=== PATIENT | female | born 1980 ===

== ENCOUNTER 2022-01-04 13:41 | Outpatient (REF) | payer OTHER, SELFPAY ==
--- NOTE | ~2022-01-04 | MM_ITS ---
EXAMINATION: MM SCREENING DIGITAL BREAST TOMOSYNTHESIS, BILATERAL CLINICAL INFORMATION: Screening. Asymptomatic. Prior history reduction mammoplasty. Prior [id number] mammography currently unavailable. The lifetime risk of breast cancer based on the Tyrer-Cuzick Model is 10%. COMPARISON: None. TECHNIQUE: Digital breast tomosynthesis is performed in both the craniocaudal and mediolateral oblique views along with computer-aided detection (CAD). Synthesized 2D images are generated from the tomosynthesis. Additional right MLO view is provided. FINDINGS: There are scattered areas of fibroglandular density (ACR BI-RADS breast composition Category b). Breast tissue composition borders on heterogeneously dense. There is no significant mass or architectural abnormality or abnormal calcifications. Scattered bilateral round, rim, predominantly dermal calcifications are present along with some minor scarring consistent with the prior reduction mammoplasty. Radiology department staff will attempt to retrieve prior [id number]-fcadh mammography to allow for comparison in an addendum report. MM/MM tomosynthesis screening BI IMPRESSION: -No mammographic evidence of malignancy. -Minor scarring and benign calcifications consistent with prior reduction mammoplasty. ASSESSMENT: BI-RADS 2: Benign RECOMMENDATION: Routine annual mammography screening. This patient's information was entered into a reminder system with a target due date for their next mammogram.
== END 2022-01-04 13:42 | disposition home or self-care (01) ==
LOC: HO.MAMMO 13:41
PROVIDERS: Visit Provider Internal Medicine
DX: Z12.31 Encounter for screening mammogram for malignant neoplasm of breast (principal)
CPT/HCPCS: 77063; 77067

== ENCOUNTER 2022-08-16 09:37 | Emergency (ER) | payer OTHER, SELFPAY ==
--- NOTE | ~2022-08-16 | XR_ITS ---
EXAMINATION: XR LUMBOSACRAL SPINE CLINICAL INFORMATION: Low back pain COMPARISON: None available. TECHNIQUE: Three views of the lumbosacral spine. FINDINGS: There is mild curvature of the lower lumbar spine to the left. Bone alignment is otherwise normal. No fracture or dislocation. Normal disc spaces. IUD in the pelvis. Postsurgical changes to the stomach. XR/XR lumbar spine 2-3V IMPRESSION: Mild curvature of the lower lumbar spine to the left otherwise unremarkable exam.
--- NOTE | ~2022-08-16 | XR_ITS ---
EXAMINATION: XR HIP, LEFT CLINICAL INFORMATION: Pain. COMPARISON: None available. TECHNIQUE: Two views of the left hip and 1 view of the pelvis. FINDINGS: Bone alignment is normal. No fracture or dislocation. There is CAM deformity at both hip joints, right greater than left. This can cause femoral acetabular impingement. Joint spaces are otherwise normal. There is an IUD in the pelvis. Soft tissues are otherwise normal. XR/XR hip LT w PEL1V IMPRESSION: No fracture or dislocation. CAM deformity of both hip joints, right greater than left.
[2022-08-16 09:39] VITALS: BP 120/88; PULSE 91; RESP 18; TEMP 36.6; O2SAT 97; BMI 31.4
--- NOTE | 2022-08-16 09:52 | ED_ITS ---
HPI - Back Pain/Injury General Chief Complaint: Back Pain/Injury Stated Complaint: Low Back Pain Radiating Down Left Side Time Seen by Provider: 08/16/22 09:52 Source: patient, RN notes reviewed and old records reviewed Mode of arrival: ambulatory History of Present Illness HPI Narrative: 41-year-old female past medical history of degenerative disc disease, presenting to the ED complaining of left low back/hip pain radiating down LLE x3 weeks. Admits to associated numbness/tingling & pain worsened with position changes, standing, and sitting. Denies direct injury/trauma or fall, weakness, urinary incontinence/retention, fever. Patient reports prior chronic right hip pain, had MRI a few years ago showing osteophytes. Patient requesting MRI today, states cannot get in with PCP for 3-4 months. Denies dysuria/hematuria, flank p berenice EPPS elicited complaint: back pain Related Data Allergies Allergy/AdvReac Type Severity Reaction Status Date / Time No Known Allergies Allergy Verified 08/16/22 09:48 Review of Systems Review of Systems: Constitutional: No Fever, No Chills ENT/Mouth: No Ear Pain, No Nasal Congestion, No sore throat, No Rhinorrhea, No Swallowing Difficulty Cardiovascular: No Chest Pain, No SOB Respiratory: No Cough, No Sputum Gastrointestinal: No Nausea, No Vomiting, No Diarrhea, No Constipation, No Abdominal pain Genitourinary: No Dysuria, No Urinary Frequency, No Hematuria, No Urinary Incontinence/retention, No Flank Pain Musculoskeletal: + joint pain, + Myalgias, No Joint Swelling Skin: No Skin Lesions, No rash Neuro: No Weakness, + Numbness, + Paresthesias Yes all other systems are reviewed and are negative Constitutional: Constitutional: Reports as per [facility] Past Medical History Attestation statement: The following information was validated with the patient. Source: old records reviewed Social History Social History Advance Directives: No Physical Exam Vital Signs: Vital Signs: Last Vital Signs Temp 97.8 F 08/16/22 09:39 Pulse 95 08/16/22 10:02 Resp 20 08/16/22 10:02 BP 125/73 08/16/22 10:02 Pulse Ox 97 08/16/22 10:02 O2 Del Method Room Air 08/16/22 10:02 BMI result Body Mass Index 31.4 Const: General: cooperative, healthy appearing and no acute distress Orientation/consciousness: patient oriented x3 Limitations: no limitations HEENT: Head: Yes normal to inspection and Yes atraumatic Ears: hearing grossly normal bilaterally General nose exam: Normal external nose present Face and sinus: Yes normal facial exam Eyes: General: appearance normal, both eyes and all related structures EOM: EOMs intact bilaterally Neck: Neck: Yes normal visual inspection and Yes no meningeal signs Resp: Effort & Inspection: normal respiratory effort and no respiratory distress Cardio: Rate: regular rate Heart sounds: S1 normal heart sound present and S2 normal heart sound present : General: Yes no CVA tenderness Back/Spine/Pelvis: Other: No midline cervical/thoracic/lumbar spinous tenderness/step-off or deformity. + left lower lumbar/buttock tenderness to palpation reproducing subjective complaint. No erythema/ecchymosis or crepitus Back: no CVA tenderness Skin: Rashes: no rashes Wounds: no wounds Neuro: Other: Strength intact throughout. No saddle anesthesia. Sensation intact to light touch. Neurovascular intact distally General: patient oriented x3, gait normal, tone normal, moves all extremities, no meningeal signs and no focal motor deficits Gait exam (Neuro): Normal gait present Motor exam (neuro): 5/5 motor strength present throughout Extrem: General: Yes normal to inspection Course Course Course Narrative: 1138--XR lumbar spine 2-3V IMPRESSION: Mild curvature of the lower lumbar spine to the left otherwise unremarkable exam. XR hip LT w PEL1V IMPRESSION: No fracture or dislocation. CAM deformity of both hip joints, right greater than left. Results discussed with patient and family, recommend close orthopedic follow-up, discussed worrisome signs and symptoms and strict return precautions, and when to return to the emergency department. They verbalized understanding and feel safe for discharge at this time. Medications Administered Discontinued Medications Generic Name Dose Route Start Last Admin Trade Name Freq PRN Reason Stop Dose Admin Ketorolac Tromethamine 30 mg 08/16/22 10:09 08/16/22 10:28 Ketorolac Tromethamine 30 Mg/Ml Vial IM 08/16/22 10:10 30 mg ONCE ONE Administration Medical Decision Making Medical Decision Making [facility] Narrative: 41-year-old female past medical history of degenerative disc disease, presenting to the ED complaining of left low back/hip pain radiating down LLE x3 weeks. On exam vital signs stable, NAD, nontoxic appearing, midline spinous tenderness throughout or red flag symptoms, ambulating with steady gait. Left lower lumbar/buttock MSK tenderness reproducible exam as above. No saddle anesthesia. Concern for sciatica vs osteoarthritis vs MSK pain/strain vs ? Herniated disc. Lower suspicion for cauda equina, cord compression, epidural abscess, renal stone/pyelo. Discussed with patient MRI not obtainable from the emergency department, we need to follow-up with PCP or orthopedics Plan: X-rays, IM Toradol Please refer to course for remaining clinical decision making, interpretation of labs/imaging results, and discussions with consultants and/or family members. Differential Diagnosis Differential Diagnoses: The differential diagnosis associated with the presentation includes As above External Record Review External record reviewed: Inpatient record, Office record, Outpatient record, Prior outpatient labs, Prior outpatient radiology, Primary care record and Outside ED record Tests considered The following testing was considered but not selected: As above Prescription Management I considered prescription management with: Pain Medication Discharge Plan Discharge Clinical Impression: Sciatica Patient Disposition: Home, Self-Care Instructions: Sciatica (ED) Additional Instructions: Your pain is likely musculoskeletal Flexeril is a muscle relaxer, take at night as it makes you drowsy, do not dr kalia, drink alcohol, or operate machinery while taking it Naproxen as an anti-inflammatory / pain medication, take with food Lidoderm patches are numbing patches, apply to painful area In addition take Tylenol at home If symptoms persist or worsen, pain becomes unbearable, you developed urinary retention or incontinence, or weakness return to the ED Referrals: [facility] [Provider Group] [facility] [Outside] [facility] [Outside]
--- NOTE | 2022-08-16 09:54 | PC.NURSE ---
Patient complaining of pain in lower back/left hip area. Patient denies any trauma to the area recently. Patient states that she feels most of her pain in the left hip area and it goes down into her leg. Patient noted to be limping when walking. Patient is otherwise well appearing.
[2022-08-16 10:02] VITALS: BP 125/73; PULSE 95; RESP 20; O2SAT 97
[2022-08-16] MEDS: Ketorolac Tromethamine 30 MG/ML VIAL IM (10:28)
== END 2022-08-16 12:09 | disposition home or self-care (01) ==
PROVIDERS: Emergency Provider Student in an Organized Health Care Education/Training Program; PCP Nurse Practitioner Family
DX: M54.42 Lumbago with sciatica, left side (principal)
CPT/HCPCS: 72100; 73502; 96372; 99284; J1885

== ENCOUNTER 2022-11-18 13:58 | Outpatient (AMB) | payer OTHER, SELFPAY ==
[2022-11-18 14:00] VITALS: BP 128/70; PULSE 78; O2SAT 97; BMI 30.8
--- NOTE | 2022-11-18 14:00 | MHC.OFFVIS ---
Intake Vital Signs 11/18/22 14:00 Height 5 ft 5 in Weight 185 lb 3.013 oz BMI 30.8 BP 128/70 Blood Pressure Location Lt brachial Position Sitting Pulse 78 Pulse Source Pulse Oximeter Pulse Oximetry (%) 97 Oxygen Delivery Method Room Air Intake Visit Reasons: pulmonary nodule Grain Elevator Superintendent Required: No In Flight Technician: In Flight Technician offered & declined Accompanied by: Self / Same As Patient Allergies No Known Allergies Allergy (Verified 11/18/22 14:06) Medication List - Last Reconciled 11/18/22 by Kierra Clements LPN acetaminophen (Tylenol Extra Strength) 500 mg PO Q6H PRN buprenorphine-naloxone 2-0.5 mg (Suboxone) 2 film buccal DAILY cyanocobalamin (vitamin B-12) 1,000 mcg PO DAILY cyclobenzaprine 5 mg PO Q8H PRN 5 days hydroxyzine HCl 10 mg PO .Q24 hours PRN ketorolac 10 mg PO TID PRN 5 days lidocaine 5% (Lidoderm) 1 patch topical DAILY PRN MDD remove after 12 hours multivitamin,tx-minerals 1 tab PO DAILY pantoprazole 40 mg PO DAILY PRN sertraline 200 mg PO DAILY terbinafine HCl 250 mg PO DAILY trazodone 150 mg PO BEDTIME PRN HPI pulmonary nodule HPI Details Monika is a pleasant 41 year old female, never smoker, with underlying chronic cough and pulmonary nodule. [facility] She reports having frequent scans, ranging from 6 months to 1 year, following nodule over the past few years. 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 The last chest CT from September 2022, revealed a 9 mm nodule of the SEBASTI[place]N, that was previously 11 mm. She reports having an abnormal PFT while in the [place] but has not had a recent PFT. She reports chronic cough that will last a few weeks and occurs 3-4 times per year. She denies any known triggers. She denies any allergic symptoms or allergy testing. She denies any cough at this time but does report dyspnea with stairs and hills. She denies any family history of lung conditions. She also reports frequent night time awakenings, loud snoring and daytime fatigue. She is scheduled for an in lab sleep study at [facility] in February. [facility] Social History (Updated 11/18/22 @ 14:10 by Kierra Clements LPN) Alcohol intake: current Alcohol intake frequency: a few times a week Patient Tobacco Use Status: Never used Tobacco Review of Systems Const Denies chills, Denies excessive sweating, Denies fever(s) and Denies night sweats Eyes Denies dry eyes, Denies irritation and Denies itchy eyes ENT Reports Normal hearing present, Denies nasal congestion, Denies nasal discharge, Denies post nasal drip and Denies sore throat Card Denies chest pain, Denies chest pain at rest, Denies chest pain with activity, Denies leg edema, Denies orthopnea and Denies paroxysmal nocturnal dyspnea Resp Denies chest congestion, Denies cough, Denies excessive phlegm production, Denies pain on inspiration, Denies pain with cough, Denies stridor and Denies wheezing Musc Denies myalgias Neuro Reports Normal hearing present Endo Denies excessive sweating Cj/Lymph Denies lymphadenopathy Aller/Immun Denies itchy eyes, Denies seasonal rhinorrhea and Denies wheezing Physical Exam Vital Signs: Last Vital Signs Pulse 78 11/18/22 14:00 BP 128/70 11/18/22 14:00 Pulse Ox 97 11/18/22 14:00 Oxygen Delivery Method Room Air 11/18/22 14:00 BMI result Body Mass Index 30.8 Const General: cooperative, healthy appearing, comfortable, no acute distress, well developed and alert Orientation/consciousness: patient oriented x3 Limitations: no limitations HEENT Head: Yes normal to inspection, Yes normocephalic and Yes atraumatic Ears: hearing grossly normal bilaterally and external ears normal Eyes General: appearance normal, both eyes and all related structures Eyelids: Yes eyelids normal Sclerae: sclerae normal EOM: EOMs intact bilaterally Neck Neck: Yes normal visual inspection and Yes no lymphadenopathy Lymphatic: no lymphadenopathy noted Chest Chest palpation & inspection: normal inspection of the chest Resp Effort & Inspection: normal respiratory effort, able to speak in complete sentences, no audible wheezes, no cough, no stridor, not tachypneic, no tripod positioning and no use of accessory muscles Auscultation: clear to auscultation bilaterally Cardio Jugular venous distension: no JVD Rate: regular rate Rhythm: regular rhythm Skin Other: warm, dry General skin exam: no rashes or lesions noted Neuro General: patient oriented x3 Cranial nerves: Yes Normal hearing present Cognition (Neuro): normal cognition Gait exam (Neuro): Normal gait present Extrem General: Yes normal to inspection, Yes capillary refill normal, Yes no clubbing, cyanosis or edema and Yes no pedal edema Psych Appearance: grossly normal and well kempt Speech and movement: Normal speech and movement present and Clear speech present Affect: normal affect Attitude: cooperative Thought process: Normal thought process present Thought content: Normal thought content present Insight: Good insight present (Psych) Judgement: Good judgement present (Psych) Results Reviewed Results Reviewed: Assessment & Plan Assessment & Plan (1) Dyspnea on exertion: Code(s): R06.09 - Other forms of dyspnea (2) Pulmonary nodule: Code(s): R91.1 - Solitary pulmonary nodule (3) Chronic cough: Code(s): R05.3 - Chronic cough Plan Monika presents to discuss 9 mm pulmonary nodule of SEBASTI[place]N that has been followed for the past few years. Reviewed report with patient and discussed there is a low likelihood the nodule is malignant given it has decreased in size over the past 6 months from 11mm to 9 mm. Will rescan patient in 6 months to evaluate. Will also send for PFT to assess for any restrictive or obstructive defects. Discussed empirically starting inhaler but she would like to hold off until results of PFT. All questions were answered and patient is in agreement of plan. Will follow up to review results. Orders: Orders CT chest wo IV con 03/03/23 R91.1 - Solitary pulmonary nodule PFT pulmonary function test Today J42 - Unspecified chronic bronchitis, R06.09 - Other forms of dyspnea Coding Level of Care Code New Pt Level 3 (24273) Diagnoses Dyspnea on exertion R06.09 Pulmonary nodule R91.1 Chronic cough R05.3
== END 2022-11-18 14:38 | disposition home or self-care (01) ==
PROVIDERS: PCP Nurse Practitioner Family; Referring Provider Nurse Practitioner Family; Visit Provider Nurse Practitioner Family
DX: R06.09 Other forms of dyspnea (principal); R91.1 Solitary pulmonary nodule; R05.3 Chronic cough
CPT/HCPCS: 99203

== ENCOUNTER → 2022-11-18 13:58 | Outpatient (BNVA) | payer OTHER, SELFPAY | PROVIDERS: PCP Nurse Practitioner Family; Visit Provider Nurse Practitioner Family | DX: R05.3 Chronic cough (principal); R06.09 Other forms of dyspnea; J42 Unspecified chronic bronchitis; R91.1 Solitary pulmonary nodule | CPT/HCPCS: 99202 ==

== ENCOUNTER 2022-12-15 09:03 | Outpatient (REF) | payer OTHER, SELFPAY ==
--- NOTE | 2022-12-15 09:46 | PFT_ITS ---
INDICATION: Dyspnea. SPIROMETRY: FEV to FVC 90% with an FEV1 of 2.34 L, which is 76% predicted. FVC of 2.61 L, which is 70% predicted. No significant response to bronchodilators noted. Maximum voluntary ventilation 60% predicted. LUNG VOLUMES: Total lung capacity 67% predicted with an expiratory reserve volume of 33% predicted. DIFFUSION CAPACITY: DLCO 76% predicted. COMPARISONS: None. INTERPRETATION: No obstructive ventilatory defects. No significant response to bronchodilators noted. There is a mild to moderate decrease in the maximum voluntary ventilation, which could be secondary to deconditioning. Lung volumes do demonstrate a restrictive ventilatory defect consistent with moderate restrictive lung disease. In part due to an elevated BMI, underlying parenchymal lung conditions cannot be ruled out. The patient also has a mild diffusion impairment. Clinical correlation warranted. MD NIMISHA Pickett/MODL / [id number]
== END 2022-12-15 09:04 | disposition home or self-care (01) ==
LOC: HO.RESP 09:03
PROVIDERS: PCP Nurse Practitioner Family; Visit Provider Nurse Practitioner Family
DX: R06.09 Other forms of dyspnea (principal); J42 Unspecified chronic bronchitis
CPT/HCPCS: 94010; 94727; 94729

== ENCOUNTER → 2022-12-15 09:46 | Outpatient (BNV) | payer OTHER, SELFPAY | PROVIDERS: PCP Nurse Practitioner Family; Visit Provider Hospitalist | DX: R06.09 Other forms of dyspnea (principal); R05.9 Cough, unspecified; R19.8 Other specified symptoms and signs involving the digestive system and abdomen | CPT/HCPCS: 94060; 94727; 94729 ==

== ENCOUNTER 2022-12-21 | Outpatient (REF) | payer OTHER, SELFPAY | END 2022-12-21 00:01 | disposition home or self-care (01) | LOC: CF | PROVIDERS: Visit Provider Nurse Practitioner Family | DX: R06.09 Other forms of dyspnea (principal); R91.1 Solitary pulmonary nodule; R05.3 Chronic cough; Z79.899 Other long term (current) drug therapy | CPT/HCPCS: 99212 ==

== ENCOUNTER 2022-12-21 13:24 | Outpatient (AMB) | payer OTHER, SELFPAY ==
[2022-12-21 13:35] VITALS: BP 128/70; PULSE 80; O2SAT 98; BMI 31.1
--- NOTE | 2022-12-21 13:35 | A.OFFVIS_ITS ---
Intake Vital Signs 3 12/21/22 13:35 Height 5 ft 5 in Weight 187 lb BMI 31.1 BP 128/70 Blood Pressure Location Rt brachial Position Sitting Pulse 80 Pulse Source Pulse Oximeter Pulse Oximetry (%) 98 Oxygen Delivery Method Room Air Intake Visit Reasons: pulmonary nodule Instructor Watch Assembly Required: No Rivet Maker: Rivet Maker offered & declined Accompanied by: Self / Same As Patient Allergies No Known Allergies Allergy (Verified 12/21/22 13:40) Medication List - Last Reconciled 12/21/22 by Kierra Clements LPN acetaminophen (Tylenol Extra Strength) 500 mg PO Q6H PRN buprenorphine-naloxone 2-0.5 mg (Suboxone) 2 film buccal DAILY cyanocobalamin (vitamin B-12) 1,000 mcg PO DAILY cyclobenzaprine 5 mg PO Q8H PRN 5 days hydroxyzine HCl 10 mg PO .Q24 hours PRN ketorolac 10 mg PO TID PRN 5 days lidocaine 5% (Lidoderm) 1 patch topical DAILY PRN MDD remove after 12 hours multivitamin,tx-minerals 1 tab PO DAILY pantoprazole 40 mg PO DAILY PRN sertraline 200 mg PO DAILY terbinafine HCl 250 mg PO DAILY trazodone 150 mg PO BEDTIME PRN HPI pulmonary nodule 2 HPI0 Details Monika is a pleasant 41 year old female, never smoker, with underlying chronic cough and pulmonary nodule. [facility] The last chest CT from September 2022, revealed a 9 mm nodule of the [place], that was previously 11 mm. She has a repeat scan scheduled for March. She continues to report intermittent dyspnea. Today she presents to review PFT. [facility] Social History (Updated 12/21/22 @ 13:42 by Kierra Clements LPN) Alcohol intake: current Alcohol intake frequency: a few times a week Patient Tobacco Use Status: Never used Tobacco Review of Systems Const Denies chills, Denies excessive sweating, Denies fever(s) and Denies night sweats Eyes Denies dry eyes, Denies irritation and Denies itchy eyes ENT Reports Normal hearing present Card Denies chest pain, Denies chest pain at rest, Denies chest pain with activity, Denies leg edema and Denies orthopnea Resp Denies chest congestion, Denies cough, Denies excessive phlegm production, Denies pain on inspiration, Denies pain with cough, Denies stridor and Denies wheezing Musc Denies myalgias Neuro Reports Normal hearing present Endo Denies excessive sweating Cj/Lymph Denies lymphadenopathy Aller/Immun Denies itchy eyes, Denies seasonal rhinorrhea and Denies wheezing Physical Exam Vital Signs: Last Vital Signs Pulse 80 12/21/22 13:35 BP 128/70 12/21/22 13:35 Pulse Ox 98 12/21/22 13:35 Oxygen Delivery Method Room Air 12/21/22 13:35 BMI result Body Mass Index 31.1 Const General: cooperative, healthy appearing, comfortable, no acute distress, well developed and alert Orientation/consciousness: patient oriented x3 Limitations: no limitations HEENT Head: Yes normal to inspection, Yes normocephalic and Yes atraumatic Ears: hearing grossly normal bilaterally and external ears normal Eyes General: appearance normal, both eyes and all related structures Eyelids: Yes eyelids normal Sclerae: sclerae normal EOM: EOMs intact bilaterally Neck Neck: Yes normal visual inspection and Yes no lymphadenopathy Lymphatic: no lymphadenopathy noted Chest Chest palpation & inspection: normal inspection of the chest Resp Effort & Inspection: normal respiratory effort, able to speak in complete sentences, no audible wheezes, no cough, no stridor, not tachypneic, no tripod positioning and no use of accessory muscles Auscultation: clear to auscultation bilaterally Cardio Jugular venous distension: no JVD Rate: regular rate Rhythm: regular rhythm Skin Other: warm, dry General skin exam: no rashes or lesions noted Neuro General: patient oriented x3 Cranial nerves: Yes Normal hearing present Cognition (Neuro): normal cognition Gait exam (Neuro): Normal gait present Extrem General: Yes normal to inspection, Yes capillary refill normal, Yes no clubbing, cyanosis or edema and Yes no pedal edema Psych Appearance: grossly normal and well kempt Speech and movement: Normal speech and movement present and Clear speech present Affect: normal affect Attitude: cooperative Thought process: Normal thought process present Thought content: Normal thought content present Insight: Good insight present (Psych) Judgement: Good judgement present (Psych) Results Reviewed Results Reviewed: Assessment & Plan Assessment & Plan (1) Dyspnea on exertion: Code(s): R06.09 - Other forms of dyspnea (2) Pulmonary nodule: Code(s): R91.1 - Solitary pulmonary nodule (3) Chronic cough: Code(s): R05.3 - Chronic cough Plan Reviewed PFT which did not reveal any obstructive ventilatory defects. There was some bronchodilator response in the small to medium airways. There was a decrease in MVV likely secondary to deconditioning and lung volumes were decreased suggestive of restrictive lung disease. CT chest from 09/23 did reveal stable parenchymal scarring. At this time, she would like to trial albuterol PRN as she reported symptomatic relief during the PFT. If she finds that she is using albuterol with good effect, then will call for ICS/LABA. All questions were answered and patient is in agreement of plan. Will follow up after chest CT or sooner if needed. Medications: New 2 albuterol sulfate 90 mcg/actuation 2 puffs inhalation Q4-6H PRN 1 ea 3RF shortness of breath or wheezing Coding Level of Care Code Est Pt Level 4 (60709) Diagnoses Dyspnea on exertion R06.09 Pulmonary nodule R91.1 Chronic cough R05.3
== END 2022-12-21 14:37 | disposition home or self-care (01) ==
LOC: HO.HPSW 13:24
PROVIDERS: PCP Nurse Practitioner Family; Visit Provider Nurse Practitioner Family
DX: R06.09 Other forms of dyspnea (principal); R91.1 Solitary pulmonary nodule; R05.3 Chronic cough
CPT/HCPCS: 99212; 99214

== ENCOUNTER → 2023-02-17 12:30 | Outpatient (BNV) | payer OTHER, SELFPAY | PROVIDERS: PCP Nurse Practitioner Family; Visit Provider Radiology Diagnostic Radiology | DX: R92.312 Mammographic fatty tissue density, left breast (principal); R92.323 Mammographic fibroglandular density, bilateral breasts | CPT/HCPCS: 76642; 77062; 77066 ==

== ENCOUNTER 2023-02-17 12:34 | Outpatient (REF) | payer OTHER, SELFPAY ==
--- NOTE | ~2023-02-17 | US_ITS ---
EXAMINATION: MM DIAGNOSTIC DIGITAL BREAST TOMOSYNTHESIS, BILATERAL US BREAST LIMITED, BILATERAL MAMMOGRAPHY: CLINICAL INFORMATION: Bilateral breast pain, superior on the left, and lateral on the right COMPARISON: Mammography: 01/04/2022. TECHNIQUE: Digital breast tomosynthesis is performed in both the craniocaudal and mediolateral oblique views along with computer-aided detection (CAD). Synthesized 2D images are generated from the tomosynthesis. In addition to standard views, spot magnification 3-D views were performed in the right MLO projection x2. FINDINGS: The breasts are heterogeneously dense, which may obscure small masses (ACR BI-RADS breast composition Category c). There are no suspicious masses, suspicious grouped calcifications, or areas of architectural distortion in either breast. The parenchymal pattern is stable from prior exams. No mammographic correlation to the regions of breast pain is evident. ULTRASOUND: CLINICAL INFORMATION: Bilateral breast pain, superior on the right, and lateral on the left. COMPARISON: None TECHNIQUE: Targeted sonographic evaluation was performed using a high frequency linear transducer. Selected archived documentation. FINDINGS: RIGHT BREAST: There is a mixture of fatty and fibroglandular tissue. No suspicious mass is seen. There is no pathologic acoustic shadowing. There is no axillary adenopathy. LEFT BREAST: There is a mixture of fatty and fibroglandular tissue. No suspicious mass is seen. There is no pathologic acoustic shadowing. There is no axillary adenopathy. US/US breast BI limited mamm only IMPRESSION: There are no findings suspicious for malignancy in either breast. There is no mammographic or sonographic correlate to the regions of breast pain in both breasts. Recommend clinical management. Otherwise, recommend returning to annual screening mammography. OVERALL ASSESSMENT: Mammography: BI-RADS 1 - Negative Ultrasound: BI-RADS 1 - Negative RECOMMENDATION: 1 year F/U This patient's information was entered into a reminder system with a target due date for their next mammogram.
== END 2023-02-17 12:35 | disposition home or self-care (01) ==
LOC: HO.MAMMO 12:34
PROVIDERS: PCP Nurse Practitioner Family; Visit Provider Nurse Practitioner Family
DX: N64.4 Mastodynia (principal)
CPT/HCPCS: 76642; 77062; 77066

== ENCOUNTER 2023-03-24 14:11 | Outpatient (REF) | payer OTHER, SELFPAY | END 2023-03-24 14:12 | disposition home or self-care (01) | LOC: HO.CT 14:11 | PROVIDERS: PCP Nurse Practitioner Family; Visit Provider Nurse Practitioner Family | DX: R91.1 Solitary pulmonary nodule (principal) | CPT/HCPCS: 71250 ==

== ENCOUNTER → 2023-04-11 15:16 | Outpatient (BNVA) | payer OTHER, SELFPAY | PROVIDERS: PCP Nurse Practitioner Family; Visit Provider Nurse Practitioner Family ==

== ENCOUNTER 2023-08-21 08:05 | Outpatient (REF) | payer OTHER, SELFPAY ==
--- NOTE | ~2023-08-21 | CT_ITS ---
EXAMINATION: CT CHEST WITHOUT CONTRAST CLINICAL INFORMATION: Solitary pulmonary nodule COMPARISON: 03/24/2023 TECHNIQUE: Multidetector volumetric CT imaging of the chest was done. Axial MIP volume rendering provided. Sagittal and coronal reformatted images were obtained. This CT examination was performed using dose optimization techniques as appropriate, variously including the following: *Automated exposure control *Adjustment of mA and/or kV according to patient size (this includes techniques or standardized protocols for targeted exams where dose is matched to indication/reason for exam; i.e. extremities or head) *Use of iterative reconstruction technique DLP: 152 mGy-cm FINDINGS: BUILDING MOVER: Unremarkable. LUNGS: Trachea and bronchi are patent. Diffuse mild airway wall thickening. No consolidations or groundglass opacities. NODULES: RUL: Groundglass opacities measuring up to 7 mm on previous study have resolved. LLL: 1.2 x 0.7 cm subpleural nodule previously measured 1.2 x 0.5 cm, 5:193. Stable 5 mm part solid nodule, 5:392. MEDIASTINUM: Unremarkable thyroid. 2.8 x 1.9 cm anterior mediastinal soft tissue density is currently more prominent, previous measurements in the range of 1.7 x 2.1 cm on 03/24/2023. Nonspecific mediastinal lymph nodes are unchanged. Nonenlarged heart. No pericardial effusion. Nonaneurysmal aorta with mild atherosclerotic calcifications. Nonenlarged pulmonary arteries. CORONARY ARTERY CALCIFICATION: None. PLEURA: No effusions. No pleural mass or thickening. AXILLA/CHEST WALL: 1.2 cm left breast nodule anterior to the pectoralis muscle was present previously. Interval hyperdensity may represent biopsy clip as this demonstrated uptake on 05/04/2023 PET/CT, report not available. Adjacent benign-appearing breast calcification again seen. Nonspecific lymph nodes. No pathologic lymphadenopathy. UPPER ABDOMEN: Gastric bypass. No upper abdominal pathology report. OSSEOUS AND SOFT TISSUE STRUCTURES: No suspicious osseous lesions. CT/CT chest wo IV con IMPRESSION: Stable pulmonary nodules, largest measuring 1.2 cm in the left lower lobe. No new or enlarging pulmonary nodules. No change 1.2 cm posterior left breast lesion/nodule, question interval biopsy with clip now visible. Enlarging anterior mediastinal soft tissue density, question related to thymic tissue.
== END 2023-08-21 08:06 | disposition home or self-care (01) ==
LOC: HO.CT 08:05
PROVIDERS: PCP Nurse Practitioner Family; Visit Provider Nurse Practitioner Family
DX: R91.1 Solitary pulmonary nodule (principal)
CPT/HCPCS: 71250; 99202

== ENCOUNTER 2023-08-21 11:13 | Outpatient (AMB) | payer OTHER, SELFPAY ==
--- NOTE | 2023-08-21 11:13 | MHC.OFFVIS ---
Intake Visit Reasons: Lt lower lobe nodule Intake Note: Patient referred by Kayla Boss (pulmonology) [facility] for LT lung nodule bx. Was told nodule is 12mm. Patient c/o: had Lung CT this morning. Was recently diagnosed with breast CA. Fatigue, feels tire all the time. SOB when laying down. Retired from [employer]. 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 She had a bout of diverticulitis and on a CT scan had incidental finding of left lung lesions. Also found on scanning was a left breast mass. Patient has been treated [facility] and has had a collection of studies and x-rays and scans and PET scans and breast MRI. She has seen a breast surgeon in [facility] and is scheduled to see a plastic surgeon for consideration of bilateral prophylactic and therapeutic mastectomies with reconstruction. Patient has not had genetic testing. Sequential CT scans demonstrated enlarging left lower lobe lung lesion. Patient has history of anxiety and is very upset that all the events that have happened over the last few weeks time. Family history no history of breast cancer but patient's brother had diagnosis of brain cancer, another brother had hepatic cancer, and another sister had leukemia. Energy and appetite are lobe weight is stable. Patient has never smoked. She has occasional chronic cough but denies any hemoptysis, chest pain, or wheezing. Chart was reviewed and patient evaluated. Patient was in the instrument time abroad. [facility] Surgical History (Updated 08/21/23 @ 11:46 by Arturo Brice MD) Hx of breast reduction, elective H/O gastric sleeve Social History Alcohol intake: current Alcohol intake frequency: a few times a week Patient Tobacco Use Status: Never used Tobacco Physical Exam Const Other: Patient is very emotionally labile and anxious HEENT Other: No cervical periclavicular or axillary adenopathy bilaterally demonstrated Chest Other: Chest breath sounds bilaterally. Bilateral breast exam demonstrates upper outer quadrant fullness but no discrete mass per se. No other skin changes discharge or other masses demonstrated bilaterally. Patient has an upper outer quadrant prior biopsy site of her breast lesion. GI Other: Abdomen corpulent, soft, benign Assessment & Plan Assessment & Plan (1) Breast cancer: Code(s): C50.919 - Malignant neoplasm of unspecified site of unspecified female breast Category: Surgical (2) Nodule of left lung: Code(s): R91.1 - Solitary pulmonary nodule Category: Surgical Plan Current plan is to arrange for IR CT-guided biopsy curve enlarging left lung lesion. Arrangements were also made today for genetic testing. Patient will see me after the IR biopsy. She is also being seen by variety of clinicians and [facility] Coding Level of Care Code New Pt Level 4 (09398) Diagnoses Breast cancer C50.919 Nodule of left lung R91.1
== END 2023-08-21 11:41 | disposition home or self-care (01) ==
PROVIDERS: PCP Nurse Practitioner Family; Referring Provider Nurse Practitioner Family; Visit Provider Surgery
DX: C50.919 Malignant neoplasm of unspecified site of unspecified female breast (principal); R91.1 Solitary pulmonary nodule
CPT/HCPCS: 99204

== ENCOUNTER → 2023-09-04 08:00 | Outpatient (BNV) | payer OTHER, SELFPAY | PROVIDERS: PCP Nurse Practitioner Family; Referring Provider Nurse Practitioner Family; Visit Provider Internal Medicine | DX: C50.912 Malignant neoplasm of unspecified site of left female breast (principal) | CPT/HCPCS: 99205 ==

== ENCOUNTER 2023-09-18 08:53 | Day surgery (SDC) | payer OTHER, SELFPAY ==
--- NOTE | ~2023-09-18 | CT_ITS ---
Patient is a 42-year-old female recently diagnosed with left breast cancer. Patient also has a left lower lobe 12 mm subpleural nodule that was not active on PET. Continued observation of this nodule was recommended, however, patient requests a biopsy of the nodule, which was facilitated by thoracic surgery. PROCEDURES: 1. Limited preprocedure CT of the chest. Permanent images saved in PACS. CLINICIANS: Luther Sims PA-C FINDINGS: The procedure, risks, benefits, and alternatives were carefully explained to the patient and written informed consent was obtained. The patient was initially placed prone on the CT table. A limited CT of the chest was performed, which demonstrated the left lower lobe subpleural nodule, which was located anterior to the rib, with no safe route to biopsy. The patient was then placed in the right lateral decubitus position. CT imaging demonstrated the nodule, again, anterior to the rib with no safe trajectory for biopsy. The patient was then positioned a 45 degree right lateral/prone position, however, subsequent images demonstrated pulmonary misregistration and lack of safe biopsy route. The procedure was then terminated. CT/CT biopsy lung LT Impression: Limited preprocedure CT of the chest demonstrates no safe route to sample the left lower lobe subpleural nodule. Continued observation of this nodule is recommended. This procedure was performed by Luther Sims PA-C and supervised by Dr. Goff.
[2023-09-18 09:30] LABS: UPreg QC Valid YES; Urine Pregnancy NEGATIVE (NEGATIVE)
[2023-09-18 09:31] LABS: MANUAL DIFF FLAG NO
[2023-09-18 09:33] LABS: Basophils Percent Auto 0.3 % (0-2); Eosinophils Absolute Auto 0.2 X10*3/uL (0.0-0.4); Eosinophils Percent Auto 1.7 % (0-4); Hematocrit 39.9 % (37.0-47.0); Hemoglobin 13.7 g/dl (12.0-16.0); Imm Gran Abs Auto 0.04 X10*3/uL (0.00-0.03); Imm Gran Pct Auto 0.4 % (0.0-0.4); Lymphocytes Absolute Auto 2.6 X10*3/uL (1.2-4.9); Lymphocytes Percent Auto 25.9 % (20-40); Mean Corpuscular HGB Conc 34.3 g/dl (31.0-35.0); Mean Corpuscular Hemoglobin 28.6 pg (27.0-33.0); Mean Corpuscular Volume 83.3 fL (80.0-98.0); Mean Platelet Volume 10.7 fL (9.4-12.3); Monocytes Absolute Auto 0.6 X10*3/uL (0.1-1.2); Monocytes Percent Auto 5.8 % (2-11); Neutrophils Absolute Auto 6.7 x10*3/uL (2.0-8.3); Neutrophils Percent Auto 65.9 % (45-73); Platelet Count 199 X10*3/uL (160-400); Red Blood Count 4.79 X10*6/uL (4.20-5.50); Red Cell Distribution Width 12.9 % (11.0-16.0); White Blood Count 10.2 X10*3/uL (4.8-10.8)
[2023-09-18 09:43] VITALS: BMI 32.7
[2023-09-18 09:52] LABS: Prothrombin Time 12.6 SEC (11.1-13.3)
[2023-09-18 09:55] LABS: Partial Thromboplastin Time 30.6 SEC (26.0-36.8)
--- NOTE | 2023-09-18 10:31 | MHC.SHP ---
Pre-Procedural Eval Section A - 24 Hr Update-Section A only Date of Service: 09/18/23 Section B - Complete if H&P > 30 days Chief Complaint: LEFT LUNG SOLITARY PULMONARY NODULE,HX BRST CA Details of Present Illness: 42 y/o female with a left subpleural lung nodule, 12 mm. PET negative Relevant Family History (Specify if Yes): Yes Relevant Social History: None Present Medications: see Short Stay Collaborative assessment Medical History: Significant History (breast ca) History of Previous Operations: No relevant previous surgery Allergies: Allergies Allergy/AdvReac Type Severity Reaction Status Date / Time No Known Allergies Allergy Verified 09/18/23 09:58 Review of Systems Sugical H&P ROS: Negative: Cardiovascular and Neurological and Yes, Specify: Respiratory (rib pain, dyspnea) and Hem-Onc (breast ca) Exam Surgical H&P Exam: Normal: Heart, Normal: Lungs, Normal: Skin and Normal: Neurological Plan CT left lung nodule biopsy Time Spent With Patient Time: Total time managing care of this patient today ____ minutes.
[2023-09-18 11:15] VITALS: BP 126/78; PULSE 83; RESP 20; TEMP 36.6; O2SAT 100
== END 2023-09-18 11:20 | disposition home or self-care (01) ==
LOC: HO.SSS 08:55
PROVIDERS: Physician Assistant Surgical; Student in an Organized Health Care Education/Training Program; PCP Nurse Practitioner Family; Visit Provider Surgery
DX: R91.1 Solitary pulmonary nodule (principal); Z53.8 Procedure and treatment not carried out for other reasons; C50.912 Malignant neoplasm of unspecified site of left female breast; R05.3 Chronic cough; K57.30 Diverticulosis of large intestine without perforation or abscess without bleeding; F41.1 Generalized anxiety disorder; Z80.6 Family history of leukemia; Z80.8 Family history of malignant neoplasm of other organs or systems; Z80.0 Family history of malignant neoplasm of digestive organs; Z98.84 Bariatric surgery status; Z98.890 Other specified postprocedural states
CPT/HCPCS: 32408; 36415; 71250; 81025; 85025; 85610; 85730; J2250; J2310; J3010

== ENCOUNTER → 2023-09-18 10:00 | Outpatient (BNV) | payer OTHER, SELFPAY | PROVIDERS: PCP Nurse Practitioner Family; Visit Provider Physician Assistant Surgical | DX: R91.1 Solitary pulmonary nodule (principal) | CPT/HCPCS: 32408 ==

== ENCOUNTER 2023-10-02 11:05 | Outpatient (AMB) | payer OTHER, SELFPAY ==
[2023-10-02 11:10] VITALS: BP 124/72; PULSE 86; BMI 32.1
--- NOTE | 2023-10-02 11:10 | MHC.OFFVIS ---
Vital Signs 10/02/23 11:10 Height 5 ft 5 in Weight 193 lb 1.999 oz BMI 32.1 BP 124/72 Blood Pressure Location Rt brachial Position Sitting Pulse 86 Intake Visit Reasons: genetic testing results *here* Intake Note: Patient here to discuss genetic testing results. Patient was able to have rt lung bx at [place]. She is considering [place] or [place] for chemo therapy. Reports would like to have mastectomy. Victims Advocate Clerk/Specialist Required: No Accompanied by: Self / Same As Patient Allergies No Known Allergies Allergy (Verified 10/02/23 11:13) HPI Comments Details: Patient presents for follow-up. Because of technical issues, patient was unable to hav biopsy of her left left lung lesion. Patient was scheduled have bilateral mastectomies and reconstruction in [place] at the end of this month. Patient is very emotionally labile understandably because of her breast situation and was reassured as best as possible that she will do fine with her scheduled procedure. I reassured the patient that her CT scan findings were not suspicious and her PET scan did not show avidity for this lung lesion. [facility] Medical History (Updated 09/04/23 @ 16:41 by Sammie Trevizo MD) Pelvic and perineal pain Restless leg syndrome Pulmonary nodule Leiomyoma of uterus Generalized anxiety disorder GERD (gastroesophageal reflux disease) Depression Surgical History (Updated 09/04/23 @ 08:47 by Sammie Trevizo MD) Hx of breast reduction, elective H/O gastric sleeve Family History Maternal Uncle Lung cancer Brother Kidney malignancy Sister Leukemia Paternal Aunt Pancreatic cancer Social History Household Members: Spouse and Family Alcohol intake: current Alcohol intake frequency: a few times a week Patient Tobacco Use Status: Never used Tobacco service: Yes Current occupational status: retired and disabled Physical Exam Vital Signs: Last Vital Signs Pulse 86 10/02/23 11:10 BP 124/72 10/02/23 11:10 BMI result Body Mass Index 32.1 Chest Other: Status quo Assessment & Plan Assessment & Plan (1) Nodule of left lung: Code(s): R91.1 - Solitary pulmonary nodule Category: Surgical (2) Breast cancer: Code(s): C50.919 - Malignant neoplasm of unspecified site of unspecified female breast Category: Surgical Plan At current recommendation is to repeat a CT scan of the chest for surveillance in 6 months time. Patient understood this. Arrangements made for this. Coding Level of Care Code Est Pt Level 4 (71427) Diagnoses Nodule of left lung R91.1 Breast cancer C50.919
== END 2023-10-02 11:29 | disposition home or self-care (01) ==
PROVIDERS: PCP Nurse Practitioner Family; Visit Provider Surgery
DX: R91.1 Solitary pulmonary nodule (principal); C50.919 Malignant neoplasm of unspecified site of unspecified female breast
CPT/HCPCS: 99214

== ENCOUNTER → 2023-10-02 11:05 | Outpatient (BNVA) | payer OTHER, SELFPAY | PROVIDERS: PCP Nurse Practitioner Family; Visit Provider Surgery | DX: R91.1 Solitary pulmonary nodule (principal); C50.919 Malignant neoplasm of unspecified site of unspecified female breast; Z71.2 Person consulting for explanation of examination or test findings | CPT/HCPCS: 99212 ==

== ENCOUNTER 2024-02-19 13:20 | Outpatient (AMB) | payer OTHER, SELFPAY ==
--- NOTE | 2024-02-19 13:22 | MHC.OFFVIS ---
Vital Signs 02/19/24 13:31 Height 5 ft 5 in Weight 184 lb BMI 30.6 BP 144/72 H Blood Pressure Location Rt brachial Position Sitting Pulse 110 H Intake Visit Reasons: lung nodule Intake Note: Patient here to follow up lung nodule. Requesting PET scan. Double mastectomy in October at [facility]. Patient c/o: shortness of breath. Last seen by pulmonology by Kayla Boss PA-C in December 2022. 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 She had bilateral mastectomies and expanders placed. Then she developed a right administrative intern infection which required removal. Then she had acute cholecystitis requiring laparoscopic cholecystectomy. On 02/14/2024, patient had a CT scan of the abdomen and chest which was a follow-up incidentally of the right lung nodule, which is unchanged. Patient presents with her significant other for follow-up today Patient has no smoking history. She had some exposure of chemicals in the past from duty [place]. [facility] Medical History (Updated 09/04/23 @ 16:41 by Sammie Trevizo MD) Pelvic and perineal pain Restless leg syndrome Pulmonary nodule Leiomyoma of uterus Generalized anxiety disorder GERD (gastroesophageal reflux disease) Depression Surgical History (Updated 02/19/24 @ 13:43 by Arturo Brice MD) Hx of breast reduction, elective H/O gastric sleeve Family History Maternal Uncle Lung cancer Brother Kidney malignancy Sister Leukemia Paternal Aunt Pancreatic cancer Social History Household Members: Spouse and Family Alcohol intake: current Alcohol intake frequency: a few times a week Patient Tobacco Use Status: Never used Tobacco service: Yes Current occupational status: retired and disabled Physical Exam Vital Signs: Last Vital Signs Pulse 110 H 02/19/24 13:31 BP 144/72 H 02/19/24 13:31 BMI result Body Mass Index 30.6 Chest Other: Chest breath sounds bilaterally. Patient has noted above status post bilateral breast surgery which has all been done at [facility] and followed up there. Assessment & Plan Assessment & Plan (1) Pulmonary nodule: Code(s): R91.1 - Solitary pulmonary nodule Category: Surgical Plan: The patient would like a PET scan, this lesion is very small and would not be picked up by CT scan. It has also been unchanged in roughly 1 year's time on follow-up. He has also not suspicious in appearance. My current recommendation is for follow-up CT scan of the chest in 1 year's time the patient will see me after that study. She is in agreement. Arrangements were made for this. All questions answered. Orders: Orders CT chest wo/w IV con 11 Months R91.1 - Solitary pulmonary nodule Coding Level of Care Code Est Pt Level 4 (39359) Diagnoses Pulmonary nodule R91.1
[2024-02-19 13:31] VITALS: BP 144/72; PULSE 110; BMI 30.6
== END 2024-02-19 13:40 | disposition home or self-care (01) ==
PROVIDERS: PCP Nurse Practitioner Family; Visit Provider Surgery
DX: R91.1 Solitary pulmonary nodule (principal)
CPT/HCPCS: 99214

== ENCOUNTER → 2024-02-19 13:20 | Outpatient (BNVA) | payer OTHER, SELFPAY | PROVIDERS: PCP Nurse Practitioner Family; Visit Provider Surgery | DX: R91.1 Solitary pulmonary nodule (principal) | CPT/HCPCS: 99212 ==

== ENCOUNTER 2024-05-01 10:41 | Outpatient (REF) | payer OTHER, SELFPAY ==
--- NOTE | ~2024-05-01 | CT_ITS ---
CLINICAL HISTORY: R91.1 - Solitary pulmonary nodule CT chest with and without contrast Comparison: CT/REG/[place]/SR - CT CHEST WO IV CON - 08/21/23 08:[address]/[place]/SR - CT CHEST WO IV CON - 03/24/23 14:33 EST Findings: The heart is normal size. The thyroid gland is unremarkable. Soft tissue density of the anterior mediastinum 1.9 x 2.4 cm in size, previously 2 x 2[address] 08/21/2023 and 1.8 x [address] 03/24/2023. No consolidation or effusion. Stable in size of the 5.8 mm nodule of the left lower lobe series 9, image 104. Stable in size of the 1.1 cm pleural-based nodule of the left lower lobe image 46. New subpleural reticular opacity of the left upper lobe anteriorly. Gastric sleeve. Bilateral breast implants. No acute fractures. IMPRESSION: Stable in size of pulmonary nodules. New subpleural reticular opacity of the left upper lobe anteriorly likely represents postradiation pneumonitis/fibrosis. Soft tissue density of the anterior mediastinum likely represents prominent thymus tissue. Correlation with prior PET-CT findings is recommended. Imaging follow-up as indicated to exclude lymphadenopathy or other possibilities. Fleischner Society 2017 Guidelines for incidentally detected indeterminate nodules in persons 35 years of age or older. Single Solid Nodules: 5 mm or smaller nodules need no follow-up in low risk, and [address] follow-up is optional in high risk patients. 6-8 mm nodules have optional [address] follow-up in low risk, and 6-[address] follow-up followed by 18-[address] follow-up if no change in high risk patients. 9 mm or larger nodules should consider CT, PET/CT, or biopsy at 3 months regardless of patient risk. Multiple Solid Nodules: 5 mm or smaller nodules need no follow-up in low risk, and [address] follow-up is optional in high risk patients. 6-8 mm nodules need 3-[address] follow-up followed by an optional 18-[address] follow-up regardless of patient risk. 9 mm or larger nodules should consider 3-[address] follow-up. For low risk 18-24 month follow-up is optional, whereas for high risk it is needed. Single Ground Glass Nodules: 5 mm or smaller nodules need no followup 6 mm and larger nodules need CT at 6-12 months to confirm persistence, then CT every 2 years until 5 years Single Subsolid Nodules: 5 mm or smaller nodules need no followup 6 mm and larger nodules need CT at 3-6 months to confirm persistence. If no change and solid component /T/lt;6 mm, then CT every year until 5 years Multiple Ground Glass or Subsolid Nodules: 5 mm or smaller nodules need CT at 3-6 months. If stable, optional CT at 2 and 4 years. 6 mm or larger nodules need CT at 3-6 months. Subsequent management based on most suspicious nodule This document has been electronically signed by: Cuong Nelson MD on 05/01/2024 16:07:06
[2024-05-01] MEDS: iohexoL 350 MG/ML 75 ML INFUS..BTL 65 ML IV (11:26)
--- OUTSIDE RECORDS SUMMARY | 2024-05-01 12:47 | XMS_ITS | Clinical Summary ---
Author Organization [facility] Address [address] [place] [address] Care Team Providers Care Mechanic Welder Name Role Phone Unknown, Primary Care Provider Unavailabl e Allergies No known active allergies Medications Medication Sig Dispensed Refills Start Date End Date Status letrozole (FEMARA) 2.5 MG tablet Take 1 tablet (2.5 mg total) by mouth daily 0 Active acetaminophen (TYLENOL) 325 MG tablet Take 2 tablets (650 mg total) by mouth every 4 (four) hours as needed for pain. 0 Active buprenorphine HCl-naloxone HCl 8-2 mg (SUBOXONE) sublingual film Place 1 each under the tongue daily. 0 Active Calcium Citrate-Vitamin D3 315-6.25 MG-MCG TABS Take 1 tablet by mouth daily. 0 Active celecoxib (CeleBREX) 200 MG capsule Take 1 capsule (200 mg total) by mouth 2 (two) times a day. x 7 days 0 Active clonazePAM (KlonoPIN) 1 MG tablet Take 1 tablet (1 mg total) by mouth every night at bedtime. 0 Active hydrOXYzine (ATARAX) 25 MG tablet Take 1 tablet (25 mg total) by mouth 2 (two) times a day as needed for itching. 0 Active traZODone (DESYREL) 100 MG tablet Take 2 tablets (200 mg total) by mouth every night at bedtime. 0 Active valACYclovir (VALTREX) 500 MG tablet Take 1 tablet (500 mg total) by mouth daily. 0 Active amitriptyline (ELAVIL) tablet 25 mg Take 1 tablet (25 mg total) by mouth every night at bedtime. 0 Active Active Problems Problem Noted Date Diagnosed Date Malignant neoplasm of breast in female, estrogen receptor positive 01/03/2024 Social History Tobacco Use Types Packs/Day Years Used Date Smoking Tobacco: Never Passive Smoke Exposure: Never Smokeless Tobacco: Never Tobacco Cessation:Counseling Given: Not Answered Alcohol Use Standard Drinks/Week Comments Yes 2 (1 standard drink = 0.6 oz pur e alcohol) Sex and Gender Information Value Date Recorded Sex Assigned at Female 12/15/2023 2:39 PM EDT Gender Identity Not on file Sexual Orientation Not on file Job Start Date Occupation Industry Not on file Not on file Not on file Last Filed Vital Signs Vital Sign Reading Time Taken Comments Blood Pressure 129/83 12/21/2023 11:13 AM EDT Pulse 101 12/21/2023 11:13 AM EDT Temperature 36.6 ??C (97.9 ??F) 12/21/2023 1 1:13 AM EDT Respiratory Rate 18 12/21/2023 11:1 3 AM EDT Oxygen Saturation 98% 12/21/2023 11: 13 AM EDT Inhaled Oxygen Concentration - - Weight 87.5 kg (192 lb 12.8 oz) 024 11:13 AM EDT Height 164.5 cm (5' 4.76 ) 12/21/2023 1 1:13 AM EDT Body Mass Index 32.32 12/21/2023 11:13 AM EDT Plan of Treatment Health Maintenance Due Date Last Done Comments Hepatitis C Screening 1979 Depression Screening 1991 Preventative Health Evaluation 12/30/1997 Cervical Cancer Screening (Pap Smear) 12/30/2000 COVID-19 Vaccine (3 - Pfizer risk series) 09/30/2020 09/02/2020, 08/12/2020 Pneumococcal Vaccine (2 of 2 - PCV) 11/24/2020 11/25/2019 Influenza Vaccine (#1) 2023 , 02/13/2018, 01/18/2017, Additional history exists DTap / Tdap / Td (2 - Td or Tdap) 03/01/2032 03/01/2022, 11/25/2019 Hepatitis B Vaccines Completed 12/21/2017, 06/30/2017, 05/04/2017 RSV Ped < 20 months Aged Out No longe r eligible based on patient's age to complete this topic Care Teams Mechanic Welder Relationship Specialty Start Date End Date Unknown, PCP - General 09/13/22
--- OUTSIDE RECORDS SUMMARY | 2024-05-01 12:47 | XMS_ITS ---
Author Organization [facility] Address [address] [place] [address] Phone Care Team Providers Care Excel Developer Name Role Phone Physician, No Pcp Primary Care Provider Unavaila ble Active Problems Problem Noted Date Diagnosed Date Malignant neoplasm of left breast, stage 2 02/15 Current Oncology Plans LEUPROLIDE ( LUPRON IM ) 11.25 MG EVERY 12 WEEKS* Plan Start Date:02/21/2024 Plan Provider:Theresa Lucas MD Linked Problems Malignant neoplasm of left b reast, stage 2 (CMS/HCC) Treatment Medications No medications scheduled. Past Plans No past plan information found. Radiation Treatments * No radiation treatments are documented for this patient in [facility]. Treatments may have been administered in another system.
--- OUTSIDE RECORDS SUMMARY | 2024-05-01 12:47 | XMS_ITS ---
Author Organization [facility] Address [address] [place] [address] Care Team Providers Care Technical Communicator Name Role Phone Unknown, Md Primary Care Provider Unavailabl e Active Problems Problem Noted Date Diagnosed Date Malignant neoplasm of breast in female, estrogen receptor positive 01/03/2024 Current Oncology Plans [facility] LEUPROLIDE 11.25MG (LUPRON)* Plan Start Date:02/19/2024 Plan Provider:Theresa Lucas MD Linked Problems Malignant neoplasm of breast in female, estrogen receptor positive, unspecified laterality, unspecified site of breast (HCC) Treatment Medications leuprolide (LUPRON) Past Plans No past plan information found. Radiation Treatments * No radiation treatments are documented for this patient in [facility]. Treatments may have been administered in another system.
--- OUTSIDE RECORDS SUMMARY | 2024-05-01 12:47 | XMS_ITS | Data Portability ---
Author Organization [place] [facility] Coles [facility] [place] Address [address] [place] [address] Care Team Providers Care Inclusion Specialist Name Role Phone YADIRA ROBERTSONA Primary Care Provider Assessment Encounter Date Assessment Date Assessment LastModified by Organization Details LastModified Time 09/05/2022 09/05/2022 41-year-old fema le presenting with complaint of bilateral hip pain with concomitant low back pain. Based on examination and x-ray I believe that at least some portion of her hip pain is coming from the femoral acetabular joint. I also believe that some elements of her presenting complaint is the results of lumbar pathology. My recommendations are for intra-articular injection of cortisone for therapeutic and diagnostic value this will be done at the left hip. I am also advising further evaluation and assessment by spine. Recommended follow-up in 1 month to check her response to this injection. Not available 09/05/2022 09:42:59 10/03/2022 10/03/2022 HPI: Monika is a 41-year-old female who presents today for evaluation of her cervical and lumbar spine. She has chronic low back pain that has worsened over the past 1.5 months without any new injury. She describes sharp low back pain that radiates into her left buttock and down her left leg to her ankle and left great toe. She feels like there is a blister over her left big toe. She reports paresthesias and left leg weakness. She is unaware of alleviating or aggravating factors. She describes progressive difficulty with ambulation and to falls. Pain disturbs sleep. No saddle anesthesia. No bowel incontinence. She has urinary stress incontinence no fevers, chills, or unexplained weight loss. Treatments for her lumbar spine include meloxicam, Suboxone, dry needling, physical therapy, a lumbar injection 1999 that offer her lasting relief. Activity modification, gire-eiu-grkewmx medication. In addition, she describes 1.5 weeks of radiating right arm pain/achiness with paresthesias into her right hand. She notes that she certainly had paresthesias in her left hand. She notes weakness of her hand. Denies myelopathic symptoms. She has minimal neck discomfort. Plan: 41-year-old female with chronic progressive low back pain and radiating left leg pain to her great toe. She has advanced isolated degeneration at L5-S1. She has symptoms consistent with a lumbar radiculopathy We discussed the treatment options at length including continued conservative care, injection therapy and surgical intervention. She has no interest in continuing to live with her symptoms. She does not wish to participate in additional physical therapy. She would like to discuss additional treatment options. We will order an MRI of her lumbar spine for further evaluation. She will follow-up with Dr. Dacosta after the MRI. In addition, she has 1.5 weeks of atraumatic radiating right arm pain and paresthesias into her right hand. She is starting develop some numbness in her left hand. She is understandably concerned about her symptoms. She does not have myelopathic symptoms. She has full strength on exam and no red flags. She appears to be symptomatic with a cervical radiculopathy. We will send in a course of Prednisone to her pharmacy. Risks and benefits of this medication were discussed. She was instructed to discontinue other anti-inflammatorie s while taking the prednisone. We will also refer her to physical therapy for her cervical spine for cervical traction. When she returns, if her right arm pain has not improved, cervical x-ray will be obtained and cervical MRI can be considered. She will contact us immediately with any worsening of symptoms. [email or web address] Not available 10/03/2022 18:09:42 Plan of Treatment Reminders Order Date Submit Date Provider Last Modified By Organization Details Last Modified Time Details Appointments None recorded. Lab None recorded. Referral interventio nal radiologist referral - Diagnosis: L hip pain.Ultras ound or x-ray guided intra-artic ular injection of steroid and short and/or long-acting anesthetic to femoral-jayden tabular joint.Pleas e document pre and post procedure pain levels (0-10 scale). 2022 023 [email or web address] Not available 3 15:44:39 Procedures None recorded. Surgeries None recorded. Imaging XR, hip, unilateral, 2 or 3 view 2022 023 [email or web address] [facility], [address], [place], [address], 3 09:36:10 XR, hip, unilateral, 2 or 3 view 2022 023 [email or web address] [facility], [address], [place], [address], 3 09:36:10 MRI, lumbar spine, w/o contrast - L5-S1 degeneratio n, chronic progressive low back pain with left leg pain into her great toe. Failed conservativ e care, please evaluate for left-sided neural compression . 2022 023 [email or web address] Not available 3 17:21:58 XR, lumbosacral spine, 2 or 3 view 2022 023 [email or web address] [facility], [address], [place], [address], 3 14:35:50 Medication Orders meloxicam 15 mg tablet 2022 023 [email or web address] [facility] #[id number], [address] [place] [address], [id number], 3 09:39:08 prednisone 10 mg tablet 2022 023 DONOVAN [facility] #[id number], [address], [place], [id number], 3 13:43:52 Patient TargetsNo targets recorded. Patient Instructions Encounter Date Encounter Id Patient Instructions Last Modified By Organization Details Last Modified Time 09/05/2022 [id number] 5 view x-ray jeimy dy of bilateral hips obtained today show a moderate degree of degenerative changes most notably the presence of osteophytosis at the superior rim of the acetabulum which is created over coverage of the femoral head with likely resultant femoral acetabular impingement. There is slight narrowing of the intra-articular space and there is subchondral sclerosis of the loadbearing portion of the acetabulum. There is no evidence for avascular necrosis nor fracture that I can appreciate. Not available 09/05/2022 09:42:06 10/03/2022 [id number] AP lateral radiographs lumbar spine obtained in the [place] office today. This revealed isolated degeneration at L5-S1. No evidence of spondylolisthesis or fracture. [email or web address] Not available 10/03/2022 13:40:48 Reason for Referral Interventional Radiologist Lisa vail for Pain of left hip joint Diagnosis: L hip pain.Ultrasound or x-ray guided intra-articular injection of steroid and short and/or long-acting anesthetic to femoral-acetabular joint.Please document pre and post procedure pain levels (0-10 scale). Referring Physician: Attila Santos, Orthopedic Surgery, Encounter Date: 09/05/2022 Problems Name Problem SNOMED Code Status Onset Date Resolution Date Notes Provider Name and Address Organization Details Recorded Time Cervical radiculopat hy 82129789 Active [address], [place], [address], [place] [facility], [facility] 3 13:44:12 Low back pain 073973751 Active [address], [place], [address], [place] [facility], [facility] 3 13:44:12 Degeneratio n of lumbosacral interverteb ral disc 34700085 Active [address], [place], [address], [place] [facility], [facility] 3 13:44:15 Neck pain 44501988 Active [address], [place], [address], [place] [facility], P 3 13:44:15 Lumbar radiculopat hy 785842955 Active 2022 BECKY ALICEA PA-C [address], [place], [address], [place] [facility], [facility] 3 13:44:27 Pain in right hip joint 4105639395509 02 Active 2022 ATTILA SANTOS PA-C [address], [place], [address], [place] [facility], [facility] 3 09:37:59 Pain of left hip joint 7131713097306 00 Active 2022 ATTILA SANTOS PA-C [address], [place], [address], [place] [facility], P 3 09:38:01 Problem Notes None recorded. Medical Equipment None Reported. Medications Name Sig Start Date Stop Date Status Note LastModified by Organization Details LastModified Time prednisone 10 mg tablet Day 1: 4 tablets in the morning, Day 2: 4 tablets in the morning, Day 3: 3 tablets in the morning, Day 4: 3 tablets in the morning, Day 5: 2 tablets in the morning, Day 6: 2 tablets in the morning, Day 7: 1 tablet in the morning, Day 8: 1 tablet in the morning! active Not Available Not Available No t Available meloxicam 15 mg tablet TAKE 1 TABLET BY MOUTH EVERY DAY active Not Available Not Available No t Available acetaminophen 500 mg tablet TAKE 1 TABLET BY MOUTH EVERY 6 HOURS NEEDED FOR FEVER OR PAIN active Not Available Not Available No t Available ketorolac 10 mg tablet TAKE 1 TABLET BY MOUTH THREE TIMES DAILY FOR 5 DAYS NEEDED FOR PAIN active Not Available Not Available No t Available lidocaine 5 % topical patch APPLY 1 PATCH TOPICALLY TO THE SKIN DAILY NEEDED FOR PAIN. LEAVE ON MOST PAINFUL AREA FOR UP TO 12 HOURS active Not Available Not Available No t Available gabapentin 300 mg capsule active Not Available Not Available Not Available Klonopin 1 mg tablet active Not Available Not Available Not Available cyclobenzapri ne 5 mg tablet TAKE 1 TABLET BY MOUTH EVERY 8 HOURS NEEDED FOR PAIN active Not Available Not Available No t Available Vitals Date Recorded Body height Body mass index (BMI) Body weight Provider Name and Address Organization Details Last Updated DateTime 10/03/2022 165.1 cm 31.6 kg/m2 48746.[address] [facility], 10/03/2022 13:07:08 Social History None recorded. Functional Status None recorded. Mental Status None recorded. Family History Nothing Reported. Medical History No medical history recorded. Gynecological HistoryNo gynecological history recorded. Obstetrics History GPAL:G 0 P 0 0 0 0 Past Encounters Encounter ID Performer Location Encounter Start Date Encounter Closed Date Diagnosis/Indication Diagnosis SNOMED-CT Code Diagnosis ICD10 Code Diagnosis Note [id number] Gregory Ramirez MD [facility] [address] [facility] [address] [place] [address] 09/05/2022 08:36:30 09/05/2022 09:36:10 Pain in right hip joint 5926313490 12296 M25.551 Pain of le ft hip joint 8698988941 43733 M25.552 [id number] MD ALDO Aceves [place] [address] [facility] [address] [place] [address] 10/03/2022 12:49:21 10/03/2022 13:47:46 Low back pain 882740049 M54.50 Cervical radiculopathy 56835285 M54.12 Degenerati on of lumbosacral intervertebral disc 11316520 M51.37 Neck pain 32346122 M54.2 Lumbar radiculopathy 128 692958 M54.16 Health Concerns Section Related Observation LastModified by Organization Detai ls LastModified Time None Recorded Concern Status LastModified by Organization Details LastModified Time None Recorded Advance Directives Directive None Recorded Payers Encounter Date Sequence Insurance Name Policy Number Policy Martinez Covered Member ID Martinez Member ID Guarantor Name 09/05/2022 1 FOR LIFE () Monika Cavazos [id number] Monika Cavazos 10/03/2022 1 FOR LIFE () Monika Cavazos [id number] Monika Cavazos Notes Date Note Type Note Provider Name and Address Organization Details Recorded Time 09/05/2022 text/html 41-year-old avtar gatica presents with complaints of bilateral hip pain left greater than right over the course of a few years. She reports that she had the hip assessed with an MRI at 1 point in the past while she was in active service. She does not have immediate access to that result but will obtain it for us. She denies a history of surgery or injection to either hip. Thus far she has treated it with oral medications as prescribed by the emergency department. She is experiencing pain at the lateral aspect of the hip and into the buttocks. There is slight radiation of symptoms into the groin. On the left side she has pain that radiates down the leg through the knee into the calf and with tingling and numbness into the toes. She has some chronic ongoing low back pain as well. She has yet to be seen by a audio specialist. ATTILA SANTOS PA-C [address] [place] [address], [address], [place] [facility], P 09/05/2022 09:44:05 OBGyn Episode No OBEpisode recorded.
--- OUTSIDE RECORDS SUMMARY | 2024-05-01 12:47 | XMS_ITS | Clinical Summary ---
Author Organization [facility] Address [address] [place] [phone] Phone Care Team Providers Care Film Painter Name Role Phone Physician, No Pcp Primary Care Provider Unavaila ble Allergies No known active allergies Medications Medication Sig Dispensed Refills Start Date End Date Status acetaminophen (TYLENOL) 325 mg tablet every 6 (six) hours if needed. Take 2 tablets (650 mg total) by mouth every 4 (four) hours as needed for pain Active amitriptyline (ELAVIL) 25 mg tablet Take 1 tablet (25 mg total) by mouth every night at bedtime Active buprenorphine-naloxone (Suboxone) 8-2 mg per SL film Place 1 each under the tongue daily Active CALCIUM CITRATE-VITAMIN D3 ORAL Calcium Citrate-Vitamin D3 315-6.25 MG-MCG TABS Take 1 tablet by mouth daily Active celecoxib (CeleBREX) 200 mg capsule Take 1 capsule (200 mg total) by mouth 2 (two) times a day. x 7 days Active clonazePAM (KlonoPIN) 1 mg tablet Take 1 tablet (1 mg total) by mouth every night at bedtime. - Active hydrOXYzine HCL (ATARAX) 25 mg tablet Take 1 tablet (25 mg total) by mouth 2 (two) times a day as needed for itching Active letrozole (FEMARA) 2.5 mg tablet Take 1 tablet (2.5 mg total) by mouth daily Active traZODone (DESYREL) 100 mg tablet Take 2 tablets (200 mg total) by mouth every night at bedtime. Active valACYclovir (VALTREX) 500 mg tablet Take 1 tablet (500 mg total) by mouth daily Active Active Problems Problem Noted Date Diagnosed Date Malignant neoplasm of left breast, stage 2 02/15 Encounters Date Type Department Care Team Description 02/16/2024 Telephone Hematology and Oncology [address] [address] Theresa Lucas MD pt wants to cx appts (Pt called & said she wants to cx her appts for Dr. Lucas(I did not cx) because she said she's been calling & hasn't heard back. I said someone will call you back & she said she still wants to cx appts.) from Last 3 Months Immunizations Name Administration Dates Next Due Pfizer SARS-CoV-2 COVID-19, mRNA, LNP-S, preservative free 09/02/2020,08/12/2020 Social History Tobacco Use Types Packs/Day Years Used Date Smoking Tobacco: Never Assessed Sex and Gender Information Value Date Recorded Sex Assigned at Female 02/16/2024 12:00 PM EST Gender Identity Female 02/16/2024 12:00 PM EST Sexual Orientation Straight 02/16/2024 12 :00 PM EST Job Start Date Occupation Industry Not on file Not on file Not on file Last Filed Vital Signs Vital Sign Reading Time Taken Comments Blood Pressure - - Pulse - - Temperature - - Respiratory Rate - - Oxygen Saturation - - Inhaled Oxygen Concentration - - Weight 87.5 kg (192 lb 12.8 oz) 024 11:13 AM EDT Height 164.5 cm (5' 4.76 ) 12/21/2023 1 1:13 AM EDT Body Mass Index 32.32 12/21/2023 11:13 AM EDT Plan of Treatment Health Maintenance Due Date Last Done Comments Breast Cancer Screening 1979 Pneumococcal Vaccine: Pediatrics (0 to 5 Years) and At-Risk Patients (6 to 64 Years) (1 of 2 - PCV) 12/30/1985 DTaP,Tdap,and Td Vaccines (1 - Tdap) 12/30/1998 Hepatitis B Vaccines (1 of 3 - 19+ 3-dose series) 12/30/1998 Cervical Cancer Screening: P ap Smear 12/30/2000 COVID-19 Vaccine (3 - Pfizer risk series) 09/30/2020 09/02/2020, 08/12/2020 Depression Screening 04/28/2023 HIV Screening 04/28/2023 Hepatitis C Screening 04/28/2023 Social Influencers of Health Screening 04/28/2023 Influenza Vaccine (#1) 2023 HIB Vaccines Aged Out No longer eligi ble based on patient's age to complete this topic HPV Vaccines Aged Out No longer eligi ble based on patient's age to complete this topic Hepatitis A Vaccines Aged Out No long er eligible based on patient's age to complete this topic IPV Vaccines Aged Out No longer eligi ble based on patient's age to complete this topic MMR Vaccines Aged Out No longer eligi ble based on patient's age to complete this topic Meningococcal ACWY Vaccine Aged Out N o longer eligible based on patient's age to complete this topic RSV Immunization Patients Under 20 months Aged Out No longer eligible b ased on patient's age to complete this topic Varicella Vaccines Aged Out No longer eligible based on patient's age to complete this topic Care Teams Film Painter Relationship Specialty Start Date End Date Physician, No Pcp PCP - General 02/17/24
--- OUTSIDE RECORDS SUMMARY | 2024-05-01 12:47 | XMS_ITS ---
Author Name [facility] Organization Unknown History of Medication Use Medication Directions Dispensed Refills Start Date End Date Stat us prednisone 10 mg tablet Day 1: 4 tablets in the morning, Day 2: 4 tablets in the morning, Day 3: 3 tablets in the morning, Day 4: 3 tablets in the morning, Day 5: 2 tablets in the morning, Day 6: 2 tablets in the morning, Day 7: 1 tablet in the morning, Day 8: 1 tablet in the morning! 10/03/2022 active clonazePAM (KlonoPIN) 1 mg tablet Take 1 tablet (1 mg total) by mouth every night at bedtime. - active acetaminophen (TYLENOL) 325 MG tablet Take 2 tablets (650 mg total) by mouth every 4 (four) hours as needed for pain. active gabapentin 300 mg capsule active letrozole (FEMARA) 2.5 MG tablet Take 1 tablet (2.5 mg total) by mouth daily active celecoxib (CeleBREX) 200 MG capsule Take 1 capsule (200 mg total) by mouth 2 (two) times a day. x 7 days active clonazePAM (KlonoPIN) 1 MG tablet Take 1 tablet (1 mg total) by mouth every night at bedtime. active letrozole (FEMARA) 2.5 MG tablet Take 1 tablet (2.5 mg total) by mouth daily active meloxicam 15 mg tablet TAKE 1 TABLET BY MOUTH EVERY DAY active hydrOXYzine HCL (ATARAX) 25 mg tablet Take 1 tablet (25 mg total) by mouth 2 (two) times a day as needed for itching active valACYclovir (VALTREX) 500 MG tablet Take 1 tablet (500 mg total) by mouth daily. active meloxicam 15 mg tablet Take 1 tablet every day by oral route. 09/05/2022 active lidocaine 5 % topical patch APPLY 1 PATCH TOPICALLY TO THE SKIN DAILY NEEDED FOR PAIN. LEAVE ON MOST PAINFUL AREA FOR UP TO 12 HOURS active clonazePAM (KlonoPIN) 1 MG tablet Take 1 tablet (1 mg total) by mouth every night at bedtime. active ketorolac 10 mg tablet TAKE 1 TABLET BY MOUTH THREE TIMES DAILY FOR 5 DAYS NEEDED FOR PAIN active amitriptyline (ELAVIL) tablet 25 mg Take 1 tablet (25 mg total) by mouth every night at bedtime. active Calcium Citrate-Vitamin D3 315-6.25 MG-MCG TABS Take 1 tablet by mouth daily. active cyclobenzaprine 5 mg tablet TAKE 1 TABLET BY MOUTH EVERY 8 HOURS NEEDED FOR PAIN active Problems Problem Status Onset Date Problem Type Date of Resolution Source Malignant neoplasm of left breast, stage 2 active 2024-02-16 ProblemAct [facility] Pain active EncounterDiagnosisAct [facility] Malignant neoplasm of female breast, unspecified estrogen receptor status, unspecified laterality, unspecified site of breast (HCC) active EncounterDiagnosisAct [facility] Lung nodule active EncounterDiagnosisAct [facility] Cervical radiculopathy active 2022-10-03 ProblemAct [facility] Lumbar radiculopathy active 2022-10-03 ProblemAct [facility] Low back pain active 2022-10-03 ProblemAct [facility] Pain in right hip joint active 2022-09-05 ProblemAct [facility] Pain of left hip joint active 2022-09-05 ProblemAct [facility] Neck pain active 2022-10-[address] Problem[address] [facility] [address] Degeneration of lumbosacral intervertebral disc active 2022-10-[address] Problem[address] [facility] [address] Immunizations Vaccine Date Source Lot Number Status Secure Software SARS-CoV-2 COVID-19, mRNA, LNP-S, preservative free 08/12/2020 [facility] completed [employer] SARS-CoV-2 COVID-19, mRNA, LNP-S, preservative free 09/02/2020 [facility] completed
== END 2024-05-01 10:42 | disposition home or self-care (01) ==
LOC: HO.CT 10:41
PROVIDERS: PCP Nurse Practitioner Family; Visit Provider Surgery
DX: R91.1 Solitary pulmonary nodule (principal)
CPT/HCPCS: 71270; Q9967

== ENCOUNTER → 2024-05-01 10:43 | Outpatient (BNV) | payer OTHER, SELFPAY | PROVIDERS: PCP Nurse Practitioner Family; Visit Provider Nuclear Medicine | DX: R91.1 Solitary pulmonary nodule (principal) | CPT/HCPCS: 71270 ==

== ENCOUNTER 2024-08-23 12:59 | Outpatient (AMB) | payer OTHER, SELFPAY ==
[2024-08-23 13:01] VITALS: BP 108/70; PULSE 89; O2SAT 96; BMI 32.0
--- NOTE | 2024-08-23 13:01 | A.OFFVIS_ITS ---
Vital Signs 3 08/23/24 13:01 Height 5 ft 5 in Weight 192 lb 6 oz BMI 32.0 BP 108/70 Blood Pressure Location Rt brachial Position Sitting Pulse 89 Pulse Source Pulse Oximeter Pulse Oximetry (%) 96 Oxygen Delivery Method Room Air Intake Visit Reasons: Review PET scan results Allergies No Known Allergies Allergy (Verified 08/23/24 13:05) HPI HPI Review PET scan results: Details: Monika is a pleasant 43 year old female, never smoker, with underlying chronic cough and pulmonary nodule. [facility] after waxing and waning pulmonary nodules. She was last seen in office 12/2022. Prior chest CT from September 2022, revealed a 9 mm nodule of the [place], that was previously [address] 03/2023 revealed 1.2 cm solid nodule left lower lobe which was stable 08/2023. Given the size of LLL nodule she was sent for PET scan 05/2023 which was negative for activity within the LLL however there was FDG activity of the left breast which ultimately was diagnosed via biopsy through [facility] for breast cancer. She underwent radiation on the left as well as double mastectomy for stage II BC 10/2023 through [facility] and continues to be monitored through their office, currently on letrozole. She recently underwent repeat PET scan which revealed increased FDG activity of LLL and is scheduled for wedge resection. Today she presents for second opinion regarding increased FDG activity. Of note, on PET scan in 2023 there was also diffuse osseous FDG activity, negative workup for multiple myeloma, no biopsy, and repeat PET scan did not reveal any osseous FDG activity. She continues to report concerns with widespread joint pain, paresthesias and incisional pain s/p mastectomy. [facility] Medical History (Updated 08/29/24 @ 09:19 by Kayla Boss NP) Pelvic and perineal pain Restless leg syndrome Pulmonary nodule Leiomyoma of uterus Generalized anxiety disorder GERD (gastroesophageal reflux disease) Depression Surgical History (Updated 02/19/24 @ 13:43 by Arturo Brice MD) Hx of breast reduction, elective H/O gastric sleeve Family History Maternal Uncle Lung cancer Brother Kidney malignancy Sister Leukemia Paternal Aunt Pancreatic cancer Social History Household Members: Spouse and Family Alcohol intake: current Alcohol intake frequency: a few times a week Patient Tobacco Use Status: Never used Tobacco service: Yes Current occupational status: retired and disabled Review of Systems Const Reports body aches, Denies chills, Denies excessive sweating, Reports fatigue, Denies fever(s) and Denies night sweats Eyes Denies dry eyes, Denies irritation and Denies itchy eyes ENT Reports Normal hearing present Card Denies chest pain, Denies chest pain at rest, Denies chest pain with activity, Denies leg edema and Denies orthopnea Resp Denies chest congestion, Denies cough, Denies excessive phlegm production, Denies pain on inspiration, Denies pain with cough, Denies stridor and Denies wheezing Musc Denies myalgias, Reports arthralgias, Reports numbness, Reports radiating pain into limb and Reports tingling Neuro Reports Normal hearing present, Reports numbness and Reports tingling Endo Denies excessive sweating and Reports fatigue Cj/Lymph Denies lymphadenopathy Aller/Immun Denies itchy eyes, Denies seasonal rhinorrhea and Denies wheezing Physical Exam Vital Signs: Last Vital Signs Pulse 89 08/23/24 13:01 BP 108/70 08/23/24 13:01 Pulse Ox 96 08/23/24 13:01 Oxygen Delivery Method Room Air 08/23/24 13:01 BMI result Body Mass Index 32.0 Const General: cooperative, comfortable, no acute distress, well developed and alert Orientation/consciousness: patient oriented x3 Limitations: no limitations HEENT Head: Yes normal to inspection, Yes normocephalic and Yes atraumatic Ears: hearing grossly normal bilaterally and external ears normal Eyes General: appearance normal, both eyes and all related structures Eyelids: Yes eyelids normal Sclerae: sclerae normal EOM: EOMs intact bilaterally Neck Neck: Yes normal visual inspection and Yes no lymphadenopathy Lymphatic: no lymphadenopathy noted Chest Chest palpation & inspection: normal inspection of the chest Resp Effort & Inspection: normal respiratory effort, able to speak in complete sentences, no audible wheezes, no cough, no stridor, not tachypneic, no tripod positioning and no use of accessory muscles Auscultation: clear to auscultation bilaterally Cardio Jugular venous distension: no JVD Rate: regular rate Rhythm: regular rhythm Skin Other: warm, dry General skin exam: no rashes or lesions noted Neuro General: patient oriented x3 Cranial nerves: Yes Normal hearing present Cognition (Neuro): normal cognition Gait exam (Neuro): Normal gait present Extrem General: Yes normal to inspection, Yes capillary refill normal, Yes no clubbing, cyanosis or edema and Yes no pedal edema Psych Appearance: grossly normal and well kempt Speech and movement: Normal speech and movement present and Clear speech present Affect: normal affect Attitude: cooperative Thought process: Normal thought process present Thought content: Normal thought content present Insight: Good insight present (Psych) Judgement: Good judgement present (Psych) Results Reviewed Results Reviewed: Assessment & Plan Assessment & Plan (1) Pulmonary nodule: Code(s): R91.1 - Solitary pulmonary nodule Category: Surgical (2) Breast cancer: Code(s): C50.919 - Malignant neoplasm of unspecified site of unspecified female breast Category: Surgical (3) Joint pain: Code(s): M25.50 - Pain in unspecified joint Category: Medical (4) Post-mastectomy pain: Code(s): G89.18 - Other acute postprocedural pain Category: Medical (5) Dyspnea on exertion: Code(s): R06.09 - Other forms of dyspnea Category: Medical Plan Monika presents to reestablish care as she has not been seen in office since 2022. Recent PET scan revealed increased FDG activity of LLL pulmonary nodule, size appears stable however more calcified than previously. Discussed with her h/o breast cancer proceeding with thoracic surgery for wedge resection is recommended and she will follow up with [facility]. She also reports ongoing joint pain and fatigue, will send for autoimmune work up. Encouraged patient to have an evaluation with neurology for paresthesias and will enter referral to pain management for likely postmastectomy pain. In regards to dyspnea encouraged albuterol PRN, consider ICS/LABA. All questions were answered and patient is in agreement of plan. Will follow up after wedge resection or sooner if needed. Orders: Orders 2 Sjogren's Antibodies 08/23/24 M25.50 - Pain in unspecified joint Scleroderma 70 Antibody 08/23/24 M25.50 - Pain in unspecified joint Anti DNA DS Antibody 08/23/24 M25.50 - Pain in unspecified joint JEAN CARLOS Reflex Titer and Pattern 08/23/24 M25.50 - Pain in unspecified joint Cyclic Citrullinated Peptide 08/23/24 M25.50 - Pain in unspecified joint Referrals 2 Pain Management Referral C50.919 - Malignant neoplasm of unspecified site of unspecified female breast, G89.18 - Other acute postprocedural pain Coding Level of Care Code Est Pt Level 4 (39459) Complex EM visit Add On G2211 Diagnoses Pulmonary nodule R91.1 Breast cancer C50.919 Joint pain M25.50 Post-mastectomy pain G89.18 Dyspnea on exertion R06.09
--- OUTSIDE RECORDS SUMMARY | 2024-08-23 13:04 | XMS_ITS ---
Author Organization [facility] Address [address] [place] [address] Phone Care Team Providers Care Podiatric Technician Name Role Phone Physician, No Pcp Primary Care Provider Unavaila ble Active Problems Problem Noted Date Diagnosed Date Malignant neoplasm of left b reast, stage 2 (CMS/HCC V24, CMS/HCC V28) 02/16/2024 Current Oncology Plans LEUPROLIDE ( LUPRON IM ) 11.25 MG EVERY 12 WEEKS* Plan Start Date:02/21/2024 Plan Provider:Theresa Lucas MD Linked Problems Malignant neoplasm of left b reast, stage 2 (CMS/HCC V24, CMS/HCC V28) Treatment Medications No medications scheduled. Past Plans No past plan information found. Radiation Treatments * No radiation treatments are documented for this patient in [facility]. Treatments may have been administered in another system.
== END 2024-08-23 14:02 | disposition home or self-care (01) ==
LOC: HO.HPSW 13:00
PROVIDERS: PCP Nurse Practitioner Family; Referring Provider Nurse Practitioner Family; Visit Provider Nurse Practitioner Family
DX: R91.1 Solitary pulmonary nodule (principal); C50.919 Malignant neoplasm of unspecified site of unspecified female breast; M25.50 Pain in unspecified joint; G89.18 Other acute postprocedural pain; R06.09 Other forms of dyspnea
CPT/HCPCS: 99214; G2211

== ENCOUNTER 2024-08-23 14:04 | Outpatient (REF) | payer OTHER, SELFPAY ==
[2024-08-23 17:44] LABS: Blood Urea Nitrogen 11 mg/dL (9-16); Estimated Glomerular Filt Rate > 60
[2024-08-27 15:48] LABS: Cyclic Citrullinated Peptide <16 UNITS
[2024-08-27 21:38] LABS: Anti DNA DS Antibody 3 IU/mL; Antibody to SS-A Antigen <1.0 NEG AI (<1.0 NEG); Antibody to SS-B Antigen <1.0 NEG AI (<1.0 NEG); Scleroderma 70 Antibody <1.0 NEG AI (<1.0 NEG)
[2024-08-28 15:02] LABS: Anti Nuclear Antibody Screen NEGATIVE (NEGATIVE)
== END 2024-08-23 14:05 | disposition home or self-care (01) ==
LOC: HO.WFDLDS 14:04
PROVIDERS: Referring Provider Surgery; Visit Provider Nurse Practitioner Family
DX: M25.50 Pain in unspecified joint (principal); R91.1 Solitary pulmonary nodule; C50.919 Malignant neoplasm of unspecified site of unspecified female breast; G89.18 Other acute postprocedural pain; R06.09 Other forms of dyspnea
CPT/HCPCS: 36415; 82565; 84520; 86038; 86200; 86225; 86235; 99212